=== PATIENT | male | born 1950 | race Caucasian/White ===

== ENCOUNTER → 2016-09-11 | Outpatient (CLI) | payer OTHER | LOC: ULTRA 14:09 | DX: R10.11 Right upper quadrant pain (principal); R11.0 Nausea ==

== ENCOUNTER → 2018-11-19 | Outpatient (CLI) | payer OTHER ==
[~2018-11-19] MED LIST: ASPIR 8181 MG PO; HYDROCODONE-ACE15 ML; LOPRESSOR25 PO; METFORMIN HCL500 MG PO; MOBIC15 MG PO; NORCO 5-325 TA1 EACH PO; PLAVIX 75 MG TA75 M1 PO; SIMVASTATIN40 MG PO; TRAMADOL 50 MG50 MG PO; TRAZODONE HCL50 MG PO; TRULICITY1.5 MG/0.5 SUBQ; ZESTORETIC 20-1 EAC3 PO; ZOCOR20 MG PO
== END ==
LOC: CAT 10:51
DX: R42 Dizziness and giddiness (principal)